=== PATIENT | male | born 1955 | race Caucasian/White ===

== ENCOUNTER 2017-11-10 08:03 | Observation (INO) | payer OTHER ==
[2017-11-10] MEDS ORDERED: ASPIRIN 81 MG TABLET, CHEWABLE PO ONE (08:13)
--- NOTE | 2017-11-10 08:52 | EKG REPORT ---
SEVERITY:- NORMAL ECG - SINUS RHYTHM : Confirmed by: Richmond Griffin 10-Nov-2017 08:51:43
[2017-11-10 09:05] LABS: ABSOLUTE BASOPHILS # (AUTO) 0.1 10^3/uL (0.0-0.2); ABSOLUTE EOSINOPHILS # (AUTO) 0.1 10^3/uL (0.0-0.6); ABSOLUTE LYMPHOCYTES (AUTO) 1.4 10^3/uL (0.5-4.7); ABSOLUTE MONOCYTES (AUTO) 0.4 10^3/uL (0.1-1.4); ABSOLUTE NEUT (AUTO) 4.8 10^3/uL (1.7-8.2); EOSINOPHILS % (AUTO) 1.8 % (0-6); HEMATOCRIT 47.9 % (37.9-51.0); HEMOGLOBIN 16.2 g/dL (13.5-17.0); MEAN CORPUSCULAR HEMOGLOBIN 27.1 pg (27.0-33.4); MEAN CORPUSCULAR HGB CONC 33.8 g/dL (32.0-36.0); MEAN CORPUSCULAR VOLUME 80 fl (80-97); PLATELET COUNT 269 10^3/uL (150-450); RED BLOOD COUNT 5.97 10^6/uL (4.35-5.55); SEGMENTED NEUTROPHILS % (AUTO) 70.2 % (42-78); TOTAL CELLS COUNTED % (AUTO) 100 %; WHITE BLOOD COUNT 6.9 10^3/uL (4.0-10.5)
--- NOTE | 2017-11-10 09:12 | RADIOLOGY REPORT (SQ) ---
EXAM DESCRIPTION: CHEST SINGLE VIEW COMPLETED DATE/TIME: 11/10/2017 9:03 am REASON FOR STUDY: rme cp COMPARISON: None. EXAM PARAMETERS: NUMBER OF VIEWS: One view. TECHNIQUE: Single frontal radiographic view of the chest acquired. RADIATION DOSE: NA LIMITATIONS: None. FINDINGS: LUNGS AND PLEURA: No opacities, masses or pneumothorax. No pleural effusion. MEDIASTINUM AND HILAR STRUCTURES: No masses. Contour normal. HEART AND VASCULAR STRUCTURES: Heart normal in size. Normal vasculature. BONES: No acute findings. HARDWARE: None in the chest. OTHER: No other significant finding. IMPRESSION: NO ACUTE RADIOGRAPHIC FINDING IN THE CHEST. TECHNICAL DOCUMENTATION: JOB ID: [id number] 2012 [employer]- All Rights Reserved
[2017-11-10 09:23] LABS: ALANINE AMINOTRANSFERASE 35 U/L (21-72); ALBUMIN 4.8 g/dL (3.5-5.0); ALKALINE PHOSPHATASE 57 U/L (38-126); ANION GAP 12 (5-19); ASPARTATE AMINO TRANSFERASE 22 U/L (17-59); BILIRUBIN,DIRECT 0.2 mg/dL (0.0-0.4); BILIRUBIN,TOTAL 0.7 mg/dL (0.2-1.3); BLOOD UREA NITROGEN 23 mg/dL (7-20); CALCIUM 10.4 mg/dL (8.4-10.2); CARBON DIOXIDE 27 mmol/L (22-30); CHLORIDE 100 mmol/L (98-107); CREATINE KINASE 47 U/L (55-170); GLUCOSE 112 mg/dL (75-110); POTASSIUM 4.5 mmol/L (3.6-5.0); SODIUM 138.9 mmol/L (137-145); TOTAL PROTEIN 7.5 g/dL (6.3-8.2)
[2017-11-10 09:33] LABS: CREATINE KINASE MB 2.35 ng/mL (<4.55)
[2017-11-10 09:34] LABS: TROPONIN I < 0.012 ng/mL
--- NOTE | 2017-11-10 09:41 | ER Document Report ---
ED General - General Chief Complaint: Chest Pain Stated Complaint: DIZZY Time Seen by Provider: 11/10/17 09:40 Mode of Arrival: Ambulatory Information source: Patient Notes: 62-year-old male history of hypertension hyperlipidemia presents with complaints of chest pressure sensation tightness lasting 1-2 minutes at a time intermittently over the past few weeks. Patient has not been evaluated for this. He does note that his blood pressure goes up and he feels ill. Pt notes iwth the chest pain he does get flushed . no recent stress. TRAVEL OUTSIDE OF THE [place] IN LAST 30 DAYS: No - HPI Onset: Just prior to arrival Onset/Duration: Sudden Quality of pain: Pressure Severity: Mild Pain Level: 1 Associated symptoms: Chest pain Exacerbated by: Denies Relieved by: Denies Similar symptoms previously: No Recently seen / treated by doctor: No - Related Data Allergies/Adverse Reactions: No Known Allergies Allergy (Unverified 11/10/17 08:06) Past Medical History - Social History Smoking Status: Current Every Day Smoker Cigarette use (# per day): No Chew tobacco use (# tins/day): No Smoking Education Provided: No Family History: Reviewed & Not Pertinent Review of Systems - Review of Systems Notes: REVIEW OF SYSTEMS: CONSTITUTIONAL : Denies fever, chills, or sweats. Denies recent illness. EENT: Denies eye, ear, throat, or mouth pain or symptoms. Denies nasal or sinus congestion or discharge. Denies throat, tongue, or mouth swelling or difficulty swallowing. CARDIOVASCULAR: admits to chest pain RESPIRATORY: Denies cough, cold, or chest congestion. Denies shortness of breath, difficulty breathing, or wheezing. GASTROINTESTINAL: Denies abdominal pain or distention. Denies nausea, vomiting , or diarrhea. Denies blood in vomitus, stools, or per rectum. Denies black, tarry stools. Denies constipation. GENITOURINARY: Denies difficulty urinating, painful urination, burning, frequency, blood in urine, or discharge. MUSCULOSKELETAL: Denies back or neck pain or stiffness. Denies joint pain or swelling. SKIN: Denies rash, lesions or sores. HEMATOLOGIC : Denies easy bruising or bleeding. LYMPHATIC: Denies swollen, enlarged glands. NEUROLOGICAL: Denies confusion or altered mental status. Denies passing out or loss of consciousness. Denies dizziness or lightheadedness. Denies headache. Denies weakness or paralysis or loss of use of either side. Denies problems with gait or speech. Denies sensory loss, numbness, or tingling. Denies seizures. PSYCHIATRIC: Denies anxiety or stress. Denies depression, suicidal ideation, or homicidal ideation. ALL OTHER SYSTEMS REVIEWED AND NEGATIVE. Dictation was performed using [employer] voice recognition software PHYSICAL EXAMINATION: GENERAL: Well-appearing, well-nourished and in no acute distress. HEAD: Atraumatic, normocephalic. EYES: Pupils equal round and reactive to light, extraocular movements intact, sclera anicteric, conjunctiva are normal. ENT: Nares patent, oropharynx clear without exudates. Moist mucous membranes. NECK: Normal range of motion, supple without lymphadenopathy LUNGS: Breath sounds clear to auscultation bilaterally and equal. No wheezes rales or rhonchi. HEART: Regular rate and rhythm without murmurs ABDOMEN: Soft, nontender, nondistended abdomen. No guarding, no rebound. No masses appreciated. Musculoskeletal: Normal range of motion, no pitting or edema. No cyanosis. NEUROLOGICAL: Cranial nerves grossly intact. Normal speech, normal gait. Normal sensory, motor exams PSYCH: Normal mood, normal affect. SKIN: Warm, Dry, normal turgor, no rashes or lesions noted. Physical Exam - Vital signs Vitals: Temp Pulse Resp BP Pulse Ox 98.4 F 75 16 140/99 H 94 11/10/17 08:23 11/10/17 08:23 11/10/17 08:23 11/10/17 08:23 11/10/17 08:23 Course - Re-evaluation Re-evalutation: 11/10/17 10:44 Patient overall looks well, given his complaints of dizziness chest tightness high blood pressure I will observe in the hospital over night, I believe he has anginal equivalent. Lab work imaging at this time are negative - Vital Signs Vital signs: Temp Pulse Resp BP Pulse Ox 98.4 F 75 16 140/99 H 94 11/10/17 08:23 11/10/17 08:23 11/10/17 08:23 11/10/17 08:23 11/10/17 08:23 - Laboratory Result Diagrams: 11/10/17 08:45 11/10/17 08:45 Laboratory results interpreted by me: 11/10/17 11/10/17 08:45 08:45 RBC 5.97 H BUN 23 H Glucose 112 H Calcium 10.4 H Creatine Kinase 47 L - Diagnostic Test Radiology reviewed: Image reviewed, Reports reviewed - EKG Interpretation by Me EKG shows normal: Sinus rhythm, [place], Intervals, QRS Complexes Discharge - Discharge Clinical Impression: Chest pain Qualifiers: Chest pain type: unspecified Qualified Code(s): R07.9 - Chest pain, unspecified Condition: Stable Disposition: ADMITTED OBSERVATION Admitting Provider: Hospitalist Unit Admitted: Telemetry
[2017-11-10] MEDS ORDERED: ONDANSETRON HCL INJ/PF 4 MG/2 ML SDV IV PRN (10:51)
[2017-11-10] MEDS ORDERED: DOCUSATE SODIUM 100 MG CAPSULE PO PRN (10:51)
[2017-11-10] MEDS ORDERED: NITROGLYCERIN 0.4 MG/TAB 25 TAB/BOTTLE SL PRN (10:51)
[2017-11-10] MEDS ORDERED: MAG HYDROX/AL HYDROX/SIMETH SUSP 30 ML UDCUP PO PRN (10:51)
[2017-11-10 12:08] LABS: CREATINE KINASE MB 2.09 ng/mL (<4.55)
[2017-11-10 12:09] LABS: TROPONIN I < 0.012 ng/mL
[2017-11-10 12:33] LABS: INTERNATIONAL RATION (INR) 0.86; PARTIAL THROMBOPLASTIN TIME 27.8 SEC (23.5-35.8); PROTHROMBIN TIME 12.4 SEC (11.4-15.4)
[2017-11-10] MEDS ORDERED: HYDRALAZINE HCL INJ/PF 20 MG/1 ML SDV IV PRN (12:49)
--- NOTE | 2017-11-10 12:51 | PDOC H&P ---
History of Present Illness Admission Date/PCP: 11/10/17 10:51 KUMAR CALLE MD Patient complains of: Chest pressure History of Present Illness: NICKY WOOD is a 62 year old male with a past medical history significant for hypertension and hyperlipidemia who presented to the emergency department with a complaint of intermittent chest pressure for the last 2-3 weeks that is occurring more frequently. He reports that he has noted a flushed and dizzy sensation that is associated with the chest pressure. He states that the chest pressure woke him from sleep last night and occurred intermittently throughout the night with each episode lasting 1-2 minutes. The pressure last night also radiated to between his shoulder blades which was a new development and prompted him to seek medical evaluation. At present, he is pain free. Evaluation in the emergency department was essentially unremarkable other than hypertension noted to be 163/95. He was referred to the hospitalist service for observational admission and chest pain workup. Past Medical History Cardiac Medical History: Reports: Hyperlipidema, Hypertension Pulmonary Medical History: Reports: None EENT Medical History: Reports: None Neurological Medical History: Reports: None Endocrine Medical History: Reports: None Renal/ Medical History: Reports: None Malignancy Medical History: Reports: None GI Medical History: Reports: None Musculoskeltal Medical History: Reports: None Skin Medical History: Reports: None Psychiatric Medical History: Reports: None Traumatic Medical History: Reports: None Hematology: Reports: None Infectious Medical History: Reports: None Past Surgical History Past Surgical History: Reports: Orthopedic Surgery - Back, Other - Sinus Social History Information Source: Patient Lives with: Family Smoking Status: Former Smoker Number of Years Smokin Last Time Smoked: 1970 Frequency of Alcohol Use: None Drugs: None Hx Prescription Drug Abuse: No - Advance Directive Resuscitation Status: Full Code Family History Family History: CAD, CVA, Malignancy - Laryngeal Parental Family History Reviewed: Yes Children Family History Reviewed: Yes Sibling(s) Family History Reviewed.: Yes Medication/Allergy Allergies/Adverse Reactions: No Known Allergies Allergy (Unverified 11/10/17 08:06) Review of Systems Constitutional: ABSENT: chills, fever(s), headache(s), weight gain, weight loss Eyes: ABSENT: visual disturbances Ears: ABSENT: hearing changes Cardiovascular: PRESENT: as per HPI, chest pain. ABSENT: dyspnea on exertion, edema, orthropnea, palpitations Respiratory: ABSENT: cough, hemoptysis Gastrointestinal: ABSENT: abdominal pain, constipation, diarrhea, hematemesis, hematochezia, nausea, vomiting Genitourinary: ABSENT: dysuria, hematuria Musculoskeletal: ABSENT: joint swelling Integumentary: ABSENT: rash, wounds Neurological: PRESENT: dizziness - w/ Chest pain. ABSENT: abnormal gait, abnormal speech, confusion, focal weakness, syncope Psychiatric: ABSENT: anxiety, depression, homidical ideation, suicidal ideation Endocrine: ABSENT: cold intolerance, heat intolerance, polydipsia, polyuria Hematologic/Lymphatic: ABSENT: easy bleeding, easy bruising Physical Exam Vital Signs: Temp Pulse Resp BP Pulse Ox 98.4 F 75 11 L 163/95 H 98 11/10/17 08:23 11/10/17 08:23 11/10/17 11:01 11/10/17 11:00 11/10/17 11:01 General appearance: PRESENT: no acute distress, well-developed, well-nourished Head exam: PRESENT: atraumatic, normocephalic Eye exam: PRESENT: conjunctiva pink, EOMI, PERRLA. ABSENT: scleral icterus Ear exam: PRESENT: normal external ear exam Mouth exam: PRESENT: moist, tongue midline Neck exam: ABSENT: carotid bruit, JVD, lymphadenopathy, thyromegaly Respiratory exam: PRESENT: clear to auscultation rosie, symmetrical, unlabored. ABSENT: rales, rhonchi, wheezes Cardiovascular exam: PRESENT: RRR, +S1, +S2. ABSENT: diastolic murmur, rubs, systolic murmur Pulses: PRESENT: normal dorsalis pedis pul Vascular exam: PRESENT: normal capillary refill GI/Abdominal exam: PRESENT: normal bowel sounds, soft. ABSENT: distended, guarding, mass, organolmegaly, rebound, tenderness Rectal exam: PRESENT: deferred Extremities exam: PRESENT: full ROM. ABSENT: calf tenderness, clubbing, pedal edema Neurological exam: PRESENT: alert, awake, oriented to person, oriented to place , oriented to time, oriented to situation, CN II-XII grossly intact. ABSENT: motor sensory deficit Psychiatric exam: PRESENT: appropriate affect, normal mood. ABSENT: homicidal ideation, suicidal ideation Skin exam: PRESENT: dry, intact, warm. ABSENT: cyanosis, rash Results Laboratory Results: 11/10/17 11:19 CK-MB (CK-2) 2.09 Troponin I < 0.012 Impressions: Chest X-Ray 11/10/17 08:14 IMPRESSION: NO ACUTE RADIOGRAPHIC FINDING IN THE CHEST. Assessment & Plan - Diagnosis (1) Chest pain Qualifiers: Chest pain type: unspecified Qualified Code(s): R07.9 - Chest pain, unspecified Is this a current diagnosis for this admission?: Yes Plan: The patient is admitted with intermittent chest pain that has gradually worsened in frequency and severity over the last 2-3 weeks. Heart score of 4. He is admitted as observation on continuous cardiac telemetry. Initial troponins are reassuring. Will trend. Hgb A1C was obtained to further satisfy risk; 6.0% Will obtain fasting lipid panel in the morning. He is placed on ASA and atorvastatin. Will obtain Cardiolite stress test. (2) Hypertension Is this a current diagnosis for this admission?: Yes Plan: Will resume home medications once reconciled. IV Hydralazine as needed for blood pressure. Cardiac diet. (3) Hyperlipidemia Is this a current diagnosis for this admission?: Yes Plan: Will obtain lipid panel. The patient is placed on atorvastatin; will adjust as needed once home medications are reconciled. - Time Time Spent: 50 to 70 Minutes Medications reviewed and adjusted accordingly: Yes Anticipated discharge: Home Within: within 24 hours
[2017-11-10 13:06] LABS: HEMATOCRIT 47.4 % (37.9-51.0); HEMOGLOBIN 15.8 g/dL (13.5-17.0); MEAN CORPUSCULAR HEMOGLOBIN 26.9 pg (27.0-33.4); MEAN CORPUSCULAR HGB CONC 33.3 g/dL (32.0-36.0); MEAN CORPUSCULAR VOLUME 81 fl (80-97); PLATELET COUNT 251 10^3/uL (150-450); RED BLOOD COUNT 5.88 10^6/uL (4.35-5.55); RED CELL DISTRIBUTION WIDTH 13.8 % (11.5-14.0); WHITE BLOOD COUNT 9.2 10^3/uL (4.0-10.5)
[2017-11-10] MEDS ORDERED: ATORVASTATIN CALCIUM 40 MG TABLET PO ONE (13:15)
[2017-11-10 18:13] LABS: CREATINE KINASE MB 2.41 ng/mL (<4.55)
[2017-11-10 18:16] LABS: TROPONIN I < 0.012 ng/mL
[2017-11-10] MEDS ORDERED: ATORVASTATIN CALCIUM 40 MG TABLET PO SCH (22:00)
[2017-11-10] MEDS: KETOROLAC TROMETHAMINE INJ/PF 30 MG/1 ML SDV IV PRN (23:20)
[2017-11-10] MEDS: FAMOTIDINE 20 MG TABLET PO SCH (23:21)
[2017-11-10 23:34] LABS: CREATINE KINASE MB 2.59 ng/mL (<4.55)
[2017-11-10 23:38] LABS: TROPONIN I < 0.012 ng/mL
[2017-11-11] MEDS: KETOROLAC TROMETHAMINE INJ/PF 30 MG/1 ML SDV IV PRN (05:28)
[2017-11-11 07:16] LABS: HEMATOCRIT 46.5 % (37.9-51.0); HEMOGLOBIN 15.4 g/dL (13.5-17.0); MEAN CORPUSCULAR HGB CONC 33.2 g/dL (32.0-36.0); MEAN CORPUSCULAR VOLUME 81 fl (80-97); PLATELET COUNT 252 10^3/uL (150-450); RED BLOOD COUNT 5.73 10^6/uL (4.35-5.55); RED CELL DISTRIBUTION WIDTH 14.2 % (11.5-14.0); WHITE BLOOD COUNT 7.7 10^3/uL (4.0-10.5)
[2017-11-11 07:40] LABS: ANION GAP 7 (5-19); BLOOD UREA NITROGEN 25 mg/dL (7-20); CARBON DIOXIDE 30 mmol/L (22-30); CHLORIDE 101 mmol/L (98-107); CHOLESTEROL 315.16 mg/dL (0-200); GLUCOSE 96 mg/dL (75-110); POTASSIUM 4.6 mmol/L (3.6-5.0); SODIUM 137.7 mmol/L (137-145); TRIGLYCERIDES 166 mg/dL (<150)
[2017-11-11 07:50] LABS: DIRECT LDL 209 mg/dL (<100)
[2017-11-11 07:53] LABS: VLDL CHOLESTEROL 33.2 mg/dL (10-31)
[2017-11-11] MEDS ORDERED: FLUTICASONE NASAL SPRAY 50 MCG/SPRY 120 SPRAY/16 GM NASL ONE (09:45)
[2017-11-11] MEDS ORDERED: ASPIRIN 81 MG TABLET, ENT COATED PO SCH (10:00)
[2017-11-11] MEDS ORDERED: ENOXAPARIN SODIUM INJ 40 MG/0.4 ML DISP.SYRIN SUBCUT SCH (10:00)
[2017-11-11] MEDS: FAMOTIDINE 20 MG TABLET PO SCH (11:19)
--- NOTE | 2017-11-11 13:27 | DRAGON STRESS TEST REPORT ---
INTRAVENOUS LEXISCAN CARDIOLITE STRESS TEST USING SINGLE PHOTON EMMISION COMPUTERIZED TOMOGRAPHIC. DATE OF PROCEDURE: November 11, 2017, INDICATION : Chest pain CARDIAC RISK FACTORS: Hypertension, dyslipidemia RESTING EKG: Sinus rhythm, no baseline ST-T wave changes noted STRESS EKG: No significant changes noted with LexiScan bolus REASON FOR TERMINATION: Protocol. PROCEDURE REPORT: Baseline heart rate 58 beats per minute with blood pressure of 171/104. Patient had no significant complaints. Heart rate at 2 minutes post bolus 95 with a blood pressure of 178/96. 3 minutes post bolus heart rate 75 with blood pressure of 176/111. No significant EKG changes were noted. Patient had no significant complaints during the procedure or postprocedure. Patient injected with Aminophyllin 75 mg at 3 minutes or later after Lexiscan bolus. CONCLUSIONS: Normal EKG and hemodynamic response to IV LexiScan. NUCLEAR DATA: At rest the patient was given 11.92 millicuries of technetium 99 sestamibi injected intravenously. As per protocol rest gated SPECT images were obtained. On day of stress test, the patient was given intravenous LexiScan at a dose of 0.4 mg in 5 mL intravenously, followed by flush with normal saline. Subsequently the stress dose of 36.8 millicuries of technetium 99 sestamibi was injected intravenously. As per protocol stress gated images were obtained. NUCLEAR INTERPRETATION: Both raw and processed data were used for interpretation. Visual, qualitative, computer-generated quantitative data was used. There was good myocardial uptake of technetium compound. Motion artifact and soft tissue attenuations were noted. Increased visceral uptake was noted. No definitive areas of transient perfusion defect noted, No definitive areas of fixed perfusion defect or scars noted. EKG gated imaging showed LV EF at 49 %, rest and stress gated EF similar visually. T. I D. ratio was 1.09. Lung heart ratio noted to be within normal limits 0.24. No significant extracardiac and abnormal radiotracer activities were noted. RV free wall uptake was noted to be WNL. IMPRESSION: Also refer to comments under nuclear interpretation. Also test results needs to be interpreted in the context of pretest probability. 1. No definitive areas of transient perfusion defect noted. 2. There is no definitive scintigraphic evidence of myocardial infarction/scar. 3. EKG gated imaging shows left ventricular ejection fraction of approx. 49 %. 4. Clinical correlation requested as occasionally single vessel disease or balanced ischemia could be missed. In approximately 10% of the cases Lexiscan may not cause adequate vasodilatory stress. MTDD
[2017-11-11] MEDS ORDERED: BUTALB/ACETAMINOPHEN/CAFFEINE 1 TAB EACH PO ONE (15:00)
[2017-11-11 16:16] VITALS: BP 151/83
--- NOTE | 2017-11-11 17:16 | PDOC DISCHARGE SUMMARY ---
General - Admit/Disc Date/PCP Admission Date/Primary Care Provider: 11/10/17 10:51 KUMAR CALLE MD Discharge Date: 11/11/17 - Discharge Diagnosis (3) Chest pain Is this a current diagnosis for this admission?: Yes (4) Hyperlipidemia Is this a current diagnosis for this admission?: Yes (5) Hypertension Is this a current diagnosis for this admission?: Yes - Additional Information Resuscitation Status: Full Code Discharge Diet: Regular Discharge Activity: Walk Frequently Prescriptions: Amox Tr/Potassium Clavulanate [Augmentin 875-125 mg Tablet] 1 tab PO BID #20 tablet Atorvastatin Calcium [Lipitor 40 mg Tablet] 40 mg PO QHS 30 Days #30 tablet Nitroglycerin [Nitrostat 0.4 mg (1/150 Gr) Tabs 25/Bottle] 1 tab SL Q5MP PRN # 12 bottle PRN Reason: Venlafaxine HCl ER [Effexor Xr 37.5 mg Cap.sr] 37.5 mg PO DAILY #30 cap.sr.24h Home Medications: 5-Hydroxytryptophan (5-Htp) [5-HTP 100 mg Capsule] 100 mg PO DAILY 11/10/17 Cholecalciferol (Vitamin D3) [Vitamin D3 5000 unit Capsule] 10,000 unit PO DAILY 11/10/17 Eletriptan HBr [Relpax] 40 mg PO .X1 PRN MDD 2 DOSES 11/10/17 Garlic [Garlic Oil] 1,000 mg PO DAILY 11/10/17 Ibuprofen [Motrin 800 mg Tablet] 800 mg PO Q8HP PRN 11/10/17 Ipratropium [place] [Atrovent 0.06% Nasal [place]] 2 spray NASL QIDP PRN 11/10/17 Lisinopril [Prinivil 10 mg Tablet] 10 mg PO DAILY 11/10/17 Meclizine HCl [Antivert 12.5 mg Tablet] 12.5 mg PO DAILYP PRN 11/10/17 Multivit-Min/FA/Lycopen/Lutein [Centrum Silver Men Tablet] 1 tab PO DAILY [place]-3 Fatty Acids/Fish Oil [Fish Oil 1,000 mg Capsule] 1 cap PO DAILY Amox Tr/Potassium Clavulanate [Augmentin 875-125 mg Tablet] 1 tab PO BID #20 tablet 11/11/17 Aspirin [Ecotrin 81 mg EC Tablet] 81 mg PO DAILY #0 tabec 11/11/17 Atorvastatin Calcium [Lipitor 40 mg Tablet] 40 mg PO QHS 30 Days #30 tablet Nitroglycerin [Nitrostat 0.4 mg (1/150 Gr) Tabs 25/Bottle] 1 tab SL Q5MP PRN # 12 bottle 11/11/17 Venlafaxine HCl ER [Effexor Xr 37.5 mg Cap.sr] 37.5 mg PO DAILY #30 cap.sr.24h 11/11/17 History of Present Illness History of Present Illness: NICKY WOOD is a 62 year old male with a past medical history significant for hypertension and hyperlipidemia who presented to the emergency department with a complaint of intermittent chest pressure for the last 2-3 weeks that is occurring more frequently. He reports that he has noted a flushed and dizzy sensation that is associated with the chest pressure. He states that the chest pressure woke him from sleep last night and occurred intermittently throughout the night with each episode lasting 1-2 minutes. The pressure last night also radiated to between his shoulder blades which was a new development and prompted him to seek medical evaluation. At present, he is pain free. Evaluation in the emergency department was essentially unremarkable other than hypertension noted to be 163/95. He was referred to the hospitalist service for observational admission and chest pain workup. This is the original H&P dictated by Dr. Blanco. Hospital Course Hospital Course: Patient was admitted for chest pain. Due to his risk factors patient was set up for stress test. Prior to the stress test patient was placed on aspirin and statin. No beta-carl was given due to patient's borderline bradycardia. Patient did have a lipid panel which was consistent with hyperlipidemia. Patient hemoglobin A1c was 6. Patient stress test was normal. Patient no longer has chest pain. But he is complaining of a headache. Patient states that he has been stressed and is having anxiety. Patient used to take Effexor in the past however when the dose was increased and made him feel poorly and he stopped taking the medication. Patient is requesting to be placed back on that medication. Patient is also complaining of a sinus infection. Patient does have symptoms consistent with a sinus infection. Patient started on Augmentin and Flonase. Patient is being discharged home to follow his PCP. Will also give him a referral to cardiology for further evaluation if necessary. Physical Exam Vital Signs: Temp Pulse Resp BP Pulse Ox 97.9 F 62 16 151/83 H 100 11/11/17 16:15 11/11/17 16:15 11/11/17 16:15 11/11/17 16:15 11/11/17 16:15 Intake & Output 11/10/17 11/11/17 11/12/17 06:59 06:59 06:59 Intake Total 3 Balance 3 Weight 78.7 kg General appearance: PRESENT: no acute distress, well-developed, well-nourished Head exam: PRESENT: atraumatic, normocephalic Eye exam: PRESENT: EOMI, other - Glasses. ABSENT: scleral icterus Ear exam: PRESENT: normal external ear exam Mouth exam: PRESENT: moist, tongue midline Teeth exam: PRESENT: poor dentation Neck exam: ABSENT: carotid bruit, JVD, lymphadenopathy, thyromegaly Respiratory exam: PRESENT: clear to auscultation rosie. ABSENT: rales, rhonchi, wheezes Cardiovascular exam: PRESENT: RRR. ABSENT: diastolic murmur, rubs, systolic murmur Pulses: PRESENT: normal dorsalis pedis pul Vascular exam: PRESENT: normal capillary refill GI/Abdominal exam: PRESENT: normal bowel sounds, soft. ABSENT: distended, guarding, mass, organolmegaly, rebound, tenderness Rectal exam: PRESENT: deferred Extremities exam: PRESENT: full ROM. ABSENT: calf tenderness, clubbing, pedal edema Neurological exam: PRESENT: alert, awake, oriented to person, oriented to place , oriented to time, oriented to situation, CN II-XII grossly intact. ABSENT: motor sensory deficit Psychiatric exam: PRESENT: appropriate affect, normal mood. ABSENT: homicidal ideation, suicidal ideation Skin exam: PRESENT: dry, intact, warm. ABSENT: cyanosis, rash Results Laboratory Results: 11/11/17 06:15 11/11/17 06:15 11/11/17 11/11/17 06:15 06:15 WBC 7.7 RBC 5.73 H Hgb 15.4 Hct 46.5 MCV 81 MCH 27.0 MCHC 33.2 RDW 14.2 H Plt Count 252 Sodium 137.7 Potassium 4.6 Chloride 101 Carbon Dioxide 30 Anion Gap 7 BUN 25 H Creatinine 0.88 Est GFR ( Amer) > 60 Est GFR (Non-Af Amer) > 60 Glucose 96 Calcium 10.0 Triglycerides 166 H Cholesterol 315.16 H LDL Cholesterol Direct 209 H VLDL Cholesterol 33.2 H HDL Cholesterol 69 11/10/17 11/10/17 11/10/17 11:19 17:04 22:56 CK-MB (CK-2) 2.09 2.41 2.59 Troponin I < 0.012 < 0.012 < 0.012 Impressions: Chest X-Ray 11/10/17 08:14 IMPRESSION: NO ACUTE RADIOGRAPHIC FINDING IN THE CHEST. Qualifiers PATEINT BEING DISCHARGED WITH ANY OF THE FOLLOWING DIAGNOSIS?: No Plan Time Spent: Greater than 30 Minutes - Patient is being discharged home on aspirin and statin. Patient advised that his cholesterol is elevated and he does require therapy at this time as he does have risk factors for coronary artery disease.
[2017-11-11] MEDS ORDERED: REGADENOSON INJ 0.4 MG/5 ML DISP.SYRIN IV ONE (17:24)
[2017-11-11] MEDS ORDERED: AMINOPHYLLINE INJ/PF 250 MG/10 ML SDV IV ONE (17:24)
[2017-11-11] MEDS ORDERED: PSEUDOEPHEDRINE HCL 30 MG TABLET PO ONE (18:00)
[2017-11-11] MEDS ORDERED: LISINOPRIL 10 MG TABLET PO ONE (18:00)
[2017-11-11] MEDS ORDERED: AMOXICILLIN TR/POT CLAVULANATE 500-125 MG TAB PO ONE (18:00)
== END 2017-11-11 18:35 | disposition home or self-care (01) ==
LOC: ER 08:03 → EH 10:51 → 5 11-11 00:59
PROVIDERS: ADMIT Internal Medicine; ATTEND Internal Medicine
DX: R07.89 Other chest pain (principal); E78.5 Hyperlipidemia, unspecified; I10 Essential (primary) hypertension; R00.1 Bradycardia, unspecified; F41.9 Anxiety disorder, unspecified; R51 Headache; R42 Dizziness and giddiness; Z79.899 Other long term (current) drug therapy; Z79.82 Long term (current) use of aspirin; J32.9 Chronic sinusitis, unspecified; Z87.891 Personal history of nicotine dependence; Z98.890 Other specified postprocedural states; Z82.49 Family history of ischemic heart disease and other diseases of the circulatory system
CPT/HCPCS: 93005; 99285; 96374; 36415 ×2; 82553; 82550; 82565; 85025; 85027 ×2; 85610; 85730; 80048; 80053; 84484; 83036; 80061; 93017; 71045; 78452; 93010; A9500; J2785; J3490 ×3; J1885 ×2; J1650; J0280; Q9969

== ENCOUNTER 2019-02-16 11:50 | Observation (INO) | payer OTHER ==
[2019-02-16] MEDS ORDERED: ASPIRIN 81 MG TABLET, CHEWABLE PO ONE (12:02)
--- NOTE | 2019-02-16 12:04 | ER Document Report ---
ED Medical Screen (RME) - General Chief Complaint: Chest Pain Stated Complaint: BLOOD PRESSURE ISSUE Time Seen by Provider: 02/16/19 12:02 Primary Care Provider: KUMAR CALLE MD [Primary Care Provider] - Follow up as needed Mode of Arrival: Ambulatory Information source: Patient Notes: Patient presents complaining of anterior chest tightness that started around 6:00 this morning. Patient complains of elevated blood pressure despite with his antihypertensive medications. Patient also complains of feeling lightheaded. Patient complains of tingling around the mouth as well. hx: Hypertension, dyslipidemia I have greeted and performed a rapid initial assessment of this patient. A comprehensive ED assessment and evaluation of the patient, analysis of test results and completion of the medical decision making process will be conducted by additional ED providers. TRAVEL OUTSIDE OF THE [place] IN LAST 30 DAYS: No - Related Data Allergies/Adverse Reactions: No Known Allergies Allergy (Unverified 11/10/17 08:06) Past Medical History - Social History Frequency of alcohol use: None Drug Abuse: None - Past Medical History Cardiac Medical History: Reports: Hx Hypercholesterolemia, Hx Hypertension Denies: Hx Congestive Heart Failure, Hx Heart Attack Pulmonary Medical History: Denies: Hx Asthma, Hx Bronchitis, Hx COPD, Hx Pneumonia, Hx Tuberculosis Neurological Medical History: Denies: Hx Seizures Renal/ Medical History: Denies: Hx Benign Prostatic Hyperplasia, Hx End Stage Renal Disease, Hx Kidney Stones, Hx Peritoneal Dialysis GI Medical History: Reports: Hx Gastroesophageal Reflux Disease. Denies: Hx Cirrhosis, Hx Ulcer Musculoskeltal Medical History: Reports Hx Arthritis - RA, Denies Hx Multiple Sclerosis Psychiatric Medical History: Reports: Hx Depression Denies: Hx Bipolar Disorder, Hx Schizophrenia Past Surgical History: Reports: Hx Orthopedic Surgery - Back, Other - Sinus - Immunizations Hx Diphtheria, Pertussis, Tetanus Vaccination: Yes History of Influenza Vaccine for 07/2017 - 12/2017 Season: Yes Influenza Administration Date for 07/2017 - 12/2017 Season: 08/20/17 Physical Exam - Vital signs Vitals: Temp Pulse Resp BP Pulse Ox 98.0 F 54 L 16 224/96 H 99 02/16/19 11:58 02/16/19 11:58 02/16/19 11:58 02/16/19 11:58 02/16/19 11:58 - Cardiovascular Rhythm: Regular Heart sounds: S1 appreciated, S2 appreciated Course - Vital Signs Vital signs: Temp Pulse Resp BP Pulse Ox 98.0 F 54 L 16 224/96 H 99 02/16/19 11:58 02/16/19 11:58 02/16/19 11:58 02/16/19 11:58 02/16/19 11:58 Doctor's Discharge - Discharge Referrals: KUMAR CALLE MD [Primary Care Provider] - Follow up as needed
--- NOTE | 2019-02-16 12:32 | RADIOLOGY REPORT (SQ) ---
EXAM DESCRIPTION: CHEST 2 VIEWS COMPLETED DATE/TIME: 02/16/2019 12:15 pm REASON FOR STUDY: cp COMPARISON: None. TECHNIQUE: Frontal and lateral radiographic views of the chest acquired. NUMBER OF VIEWS: Two view. LIMITATIONS: None. FINDINGS: LUNGS AND PLEURA: No opacities, masses or pneumothorax. No pleural effusion. MEDIASTINUM AND HILAR STRUCTURES: No masses or contour abnormalities. HEART AND VASCULAR STRUCTURES: Heart normal size. No evidence for failure. BONES: No acute findings. HARDWARE: None in the chest. OTHER: No other significant finding. IMPRESSION: NO SIGNIFICANT RADIOGRAPHIC FINDING IN THE CHEST. TECHNICAL DOCUMENTATION: JOB ID: [id number] [employer]- All Rights Reserved Reading location - IP/workstation name: [email or web address]
[2019-02-16 13:02] LABS: ABSOLUTE BASOPHILS # (AUTO) 0.1 10^3/uL (0.0-0.2); ABSOLUTE EOSINOPHILS # (AUTO) 0.1 10^3/uL (0.0-0.6); ABSOLUTE LYMPHOCYTES (AUTO) 1.7 10^3/uL (0.5-4.7); ABSOLUTE MONOCYTES (AUTO) 0.5 10^3/uL (0.1-1.4); ABSOLUTE NEUT (AUTO) 4.1 10^3/uL (1.7-8.2); BASOPHILS % (AUTO) 1.2 % (0-2); EOSINOPHILS % (AUTO) 2.2 % (0-6); MEAN CORPUSCULAR HEMOGLOBIN 27.2 pg (27.0-33.4); MEAN CORPUSCULAR HGB CONC 33.4 g/dL (32.0-36.0); MEAN CORPUSCULAR VOLUME 81 fl (80-97); MONOCYTES % (AUTO) 7.8 % (3-13); PLATELET COUNT 239 10^3/uL (150-450); RED BLOOD COUNT 5.52 10^6/uL (4.35-5.55); RED CELL DISTRIBUTION WIDTH 15.2 % (11.5-14.0); SEGMENTED NEUTROPHILS % (AUTO) 62.8 % (42-78); TOTAL CELLS COUNTED % (AUTO) 100 %; WHITE BLOOD COUNT 6.6 10^3/uL (4.0-10.5)
[2019-02-16] MEDS ORDERED: HYDRALAZINE HCL INJ/PF 20 MG/1 ML SDV IV ONE (13:11)
[2019-02-16] MEDS ORDERED: NORMAL SALINE 500 ML IV ONE (13:11)
[2019-02-16 13:22] LABS: ALANINE AMINOTRANSFERASE 46 U/L (21-72); ALBUMIN 4.4 g/dL (3.5-5.0); ALKALINE PHOSPHATASE 51 U/L (38-126); ANION GAP 6 (5-19); ASPARTATE AMINO TRANSFERASE 26 U/L (17-59); BILIRUBIN,DIRECT 0.2 mg/dL (0.0-0.4); BILIRUBIN,TOTAL 0.4 mg/dL (0.2-1.3); BLOOD UREA NITROGEN 20 mg/dL (7-20); CALCIUM 9.7 mg/dL (8.4-10.2); CARBON DIOXIDE 33 mmol/L (22-30); CHLORIDE 102 mmol/L (98-107); CREATINE KINASE 89 U/L (55-170); GLUCOSE 99 mg/dL (75-110); LIPASE 105.5 U/L (23-300); POTASSIUM 4.2 mmol/L (3.6-5.0); SODIUM 140.5 mmol/L (137-145); TOTAL PROTEIN 7.1 g/dL (6.3-8.2)
[2019-02-16 13:32] LABS: CREATINE KINASE MB 4.59 ng/mL (<4.55); TROPONIN I < 0.012 ng/mL
--- NOTE | 2019-02-16 13:40 | ER Document Report ---
Entered by NORBERTO ESPOSITO SCRIBE 02/16/19 1318 Acting as scribe for:LIZ BAINS MD ED General - General Chief Complaint: Chest Pain Stated Complaint: BLOOD PRESSURE ISSUE Time Seen by Provider: 02/16/19 12:02 Mode of Arrival: Ambulatory Information source: Patient Notes: Patient is a 63 year old male with HTN presents to the emergency department complaining of chest pain, hypertension and light headedness onset this morning. Patient states he woke up this morning and immediately felt light headed. He states after getting up and walking around, at approximately 0600, he began to have chest pain. He states he proceeded to go to work and the chest pain pers isted so he checked his blood pressure and found it to be elevated. He states his light headedness has improved. Of note, patient presented to the emergency department last year complaining of similar symptoms and had a negative nuclear medical stress test. TRAVEL OUTSIDE OF THE [place] IN LAST 30 DAYS: No - Related Data Allergies/Adverse Reactions: No Known Allergies Allergy (Unverified 11/10/17 08:06) Past Medical History - General Information source: Patient - Social History Smoking Status: Former Smoker - as a teenager Cigarette use (# per day): No Chew tobacco use (# tins/day): No Smoking Education Provided: No Frequency of alcohol use: None Drug Abuse: None Family History: CAD, CVA, Malignancy - Laryngeal Patient has suicidal ideation: No Patient has homicidal ideation: No - Past Medical History Cardiac Medical History: Reports: Hx Hypercholesterolemia, Hx Hypertension GI Medical History: Reports: Hx Gastroesophageal Reflux Disease Musculoskeletal Medical History: Reports Hx Arthritis - RA Psychiatric Medical History: Reports: Hx Depression Past Surgical History: Reports: Hx Orthopedic Surgery - Back, Other - Sinus - Immunizations Hx Diphtheria, Pertussis, Tetanus Vaccination: Yes Hx Pneumococcal Vaccination: 08/20/16 Review of Systems - Review of Systems Constitutional: See HPI EENT: No symptoms reported Cardiovascular: See HPI, Chest pain, Lightheaded Respiratory: No symptoms reported Gastrointestinal: No symptoms reported Genitourinary: No symptoms reported Male Genitourinary: No symptoms reported Musculoskeletal: No symptoms reported Skin: No symptoms reported Hematologic/Lymphatic: No symptoms reported Neurological/Psychological: No symptoms reported -: Yes All other systems reviewed and negative Physical Exam - Vital signs Vitals: Temp Pulse Resp BP Pulse Ox 98.0 F 54 L 16 224/96 H 99 02/16/19 11:58 02/16/19 11:58 02/16/19 11:58 02/16/19 11:58 02/16/19 11:58 - Notes Notes: GENERAL: Alert, interacts well. No acute distress. HEAD: Normocephalic, atraumatic. EYES: Pupils equal, round, and reactive to light. Extraocular movements intact. ENT: Oral mucosa moist, tongue midline. NECK: Full range of motion. Supple. Trachea midline. LUNGS: Clear to auscultation bilaterally, no wheezes, rales, or rhonchi. No respiratory distress. HEART: Regular rate and rhythm. No murmurs, gallops, or rubs. ABDOMEN: Soft, non-tender. Non-distended. Bowel sounds present in all 4 quadrants. No guarding, rigidity, or rebound. EXTREMITIES: Moves all 4 extremities spontaneously. No edema, radial and dorsalis pedis pulses 2/4 bilaterally. No cyanosis. NEUROLOGICAL: Alert and oriented x3. Normal speech. PSYCH: Normal affect, normal mood. SKIN: Warm, dry, normal turgor. No rashes or lesions noted. Course - Re-evaluation Re-evalutation: 02/16/19 15:33 The patient's initial blood pressure was 224/96. After 10 mg of hydralazine IV the patient's blood pressure came down to 165/90. He continues to be chest pain-free. - Vital Signs Vital signs: Temp Pulse Resp BP Pulse Ox 98.0 F 54 L 12 185/98 H 100 02/16/19 11:58 02/16/19 11:58 02/16/19 16:46 02/16/19 16:46 02/16/19 16:46 - Laboratory Result Diagrams: 02/16/19 12:51 02/16/19 12:51 Laboratory results interpreted by me: 02/16/19 02/16/19 02/16/19 12:51 12:51 12:51 RDW 15.2 H Carbon Dioxide 33 H CK-MB (CK-2) 4.59 H - Diagnostic Test Radiology reviewed: Image reviewed, Reports reviewed - Chest x-ray does not show an acute process - EKG Interpretation by Ia EKG shows normal: Sinus rhythm, [place], Intervals, QRS Complexes, ST-T Waves Rate: Normal - 53 Rhythm: NSR - Consults Dr. Velasco Time consulted: 15:05 Consulted provider: will come to ER Discharge - Discharge Clinical Impression: High blood pressure Qualifiers: Hypertension type: essential hypertension Qualified Code(s): I10 - Essential (primary) hypertension Chest pain Qualifiers: Chest pain type: unspecified Qualified Code(s): R07.9 - Chest pain, unspecified Condition: Stable Disposition: ADMITTED INPATIENT Admitting Provider: Rod (Hospitalist) Unit Admitted: Telemetry Scribe Attestation: 02/16/19 16:04 I personally performed the services described in the documentation, reviewed and edited the documentation which was dictated to the scribe in my presence, and it accurately records my words and actions. I personally performed the services described in the documentation, reviewed and edited the documentation which was dictated to the scribe in my presence, and it accurately records my words and actions.
--- NOTE | 2019-02-16 14:46 | EKG REPORT ---
SEVERITY:- NORMAL ECG - SINUS RHYTHM : Confirmed by: Richmond Griffin 16-Feb-2019 14:45:42
[2019-02-16] MEDS ORDERED: HYDRALAZINE HCL INJ/PF 20 MG/1 ML SDV IV PRN (16:59)
[2019-02-16] MEDS ORDERED: LISINOPRIL 10 MG TABLET PO ONE (17:03)
[2019-02-16] MEDS ORDERED: ONDANSETRON 4 MG TAB.RAPDIS PO PRN (17:04)
[2019-02-16] MEDS ORDERED: ACETAMINOPHEN 325 MG TABLET PO PRN (17:10)
[2019-02-16] MEDS ORDERED: MORPHINE SULFATE 10 MG/ML INJ IV PRN (17:10)
[2019-02-16] MEDS ORDERED: NITROGLYCERIN 0.4 MG/TAB 25 TAB/BOTTLE SL PRN (17:11)
[2019-02-16 19:34] LABS: CREATINE KINASE MB 3.35 ng/mL (<4.55)
[2019-02-16 19:41] LABS: TROPONIN I < 0.012 ng/mL
[2019-02-16] MEDS: FAMOTIDINE 20 MG TABLET PO SCH (21:54)
[2019-02-16] MEDS ORDERED: AMLODIPINE BESYLATE 5 MG TABLET PO SCH (22:00)
[2019-02-16] MEDS ORDERED: MIRTAZAPINE 15 MG TABLET PO SCH (22:00)
[2019-02-17 00:41] LABS: CREATINE KINASE MB 2.56 ng/mL (<4.55)
[2019-02-17 00:45] LABS: TROPONIN I < 0.012 ng/mL
[2019-02-17 07:04] LABS: CREATINE KINASE MB 2.01 ng/mL (<4.55)
[2019-02-17 07:07] LABS: TROPONIN I < 0.012 ng/mL
[2019-02-17] MEDS ORDERED: HYDROCHLOROTHIAZIDE 12.5 MG TABLET PO SCH (08:00)
[2019-02-17] MEDS: FAMOTIDINE 20 MG TABLET PO SCH (09:51)
[2019-02-17] MEDS ORDERED: LISINOPRIL 10 MG TABLET PO SCH (10:00)
[2019-02-17] MEDS ORDERED: ENOXAPARIN SODIUM INJ 40 MG/0.4 ML DISP.SYRIN SUBCUT SCH (10:00)
[2019-02-17] MEDS ORDERED: ASPIRIN 81 MG TABLET, ENT COATED PO SCH (10:00)
[2019-02-17 11:11] VITALS: BP 128/80
--- NOTE | 2019-02-17 23:09 | EKG REPORT ---
SEVERITY:- ABNORMAL ECG - SINUS RHYTHM PROBABLE INFERIOR INFARCT, OLD : Confirmed by: Richmond Griffin 17-Feb-2019 23:09:04
--- NOTE | 2019-02-18 21:38 | PDOC H&P ---
History of Present Illness Admission Date/PCP: 02/16/19 16:28 KUMAR CALLE MD Patient complains of: Chest pain History of Present Illness: NICKY WOOD is a 63 year old male who developed chest tightness while at work. He denies diaphoresis, shortness of breath or radiation of discomfort with this episode. He does report that on occasion he has discomfort that radiates to the left side of his neck. He reports no palpitations. His blood pressure was noted to be elevated. He did have a negative stress test approximately 18 months ago. He was referred to the hospitalist for admission to rule out acute coronary syndrome. Past Medical History Cardiac Medical History: Reports: Hyperlipidema, Hypertension Denies: Congestive Heart Failure, Myocardial Infarction Pulmonary Medical History: Denies: Asthma, Bronchitis, Chronic Obstructive Pulmonary Disease (COPD), Pneumonia, Tuberculosis Neurological Medical History: Denies: Seizures Renal/ Medical History: Denies: End Stage Renal Disease GI Medical History: Reports: Gastroesophageal Reflux Disease Denies: Cirrhosis Musculoskeltal Medical History: Reports: Arthritis - RA Psychiatric Medical History: Reports: Depression Denies: Bipolar Disorder Hematology: Denies: Anemia, Bleeding Tendencies Past Surgical History Past Surgical History: Reports: Orthopedic Surgery - Back, Other - Sinus Social History Information Source: Patient Smoking Status: Former Smoker - as a teenager Frequency of Alcohol Use: None Drugs: None Hx Prescription Drug Abuse: No - Advance Directive Resuscitation Status: Full Code Surrogate healthcare decision maker:: We reviewed healthcare power of assistant attorney general and living will documentation. There is a generic form in the admission packet. I encouraged them to complete this as they have no documentation on record at this point. Family History Family History: CAD, CVA, Malignancy - Laryngeal Parental Family History Reviewed: Yes Children Family History Reviewed: Yes Sibling(s) Family History Reviewed.: Yes Medication/Allergy Home Medications: Aspirin [Adult Low Dose Aspirin EC] 81 mg PO DAILY 02/16/19 Cholecalciferol (Vitamin D3) [Vitamin D3] 10,000 unit PO DAILY 02/16/19 Eletriptan HBr [Relpax] 40 mg PO ASDIR PRN 02/16/19 Fluticasone Propionate [Flonase Nasal [place] 50 Mcg/[place] 16 gm] 1 spray NASL DAILYP PRN 02/16/19 Meclizine HCl [Antivert 12.5 mg Tablet] 12.5 mg PO DAILYP PRN 02/16/19 Mirtazapine 45 mg PO DAILY 02/16/19 Multivitamin [Multiple Vitamins] 1 tab PO DAILY 02/16/19 Nitroglycerin [Nitrostat 0.4 mg (1/150 Gr) Tabs 25/Bottle] 0.4 mg SL Q5MP PRN 02/16/19 Ubidecarenone [Coq-10] 100 mg PO DAILY 02/16/19 Amlodipine Besylate [Norvasc 5 mg Tablet] 5 mg PO QHS 30 Days #30 tablet 02/17/19 Aspirin [Ecotrin 81 mg EC Tablet] 81 mg PO DAILY tabec 02/17/19 Hydrochlorothiazide [Hydrodiuril 12.5 mg Tablet] 12.5 mg PO QAM 30 Days #30 tablet 02/17/19 Lisinopril 20 mg PO DAILY #30 tablet 02/17/19 Mirtazapine [Remeron 15 mg Tablet] 45 mg PO QHS tablet 02/17/19 Nitroglycerin [Nitrostat 0.4 mg (1/150 Gr) Tabs 25/Bottle] 1 tab SL Q5MP PRN bottle 02/17/19 Allergies/Adverse Reactions: No Known Allergies Allergy (Unverified 11/10/17 08:06) Review of Systems Constitutional: PRESENT: as per HPI Eyes: ABSENT: visual disturbances Ears: ABSENT: hearing changes Nose, Mouth, and Throat: ABSENT: headache(s), mouth pain, sore throat Cardiovascular: PRESENT: chest pain. ABSENT: dyspnea on exertion, edema, orthropnea, palpitations Respiratory: ABSENT: cough, hemoptysis, sputum Gastrointestinal: ABSENT: abdominal pain, coffee ground emesis, constipation, diarrhea Genitourinary: ABSENT: difficulty urinating, hematuria Musculoskeletal: PRESENT: muscle weakness - Chronically for over a year. ABSENT: back pain, joint swelling Integumentary: ABSENT: diaphoresis, pruritus, rash Neurological: ABSENT: abnormal movements, abnormal speech, memory loss, syncope, tremor(s) Psychiatric: ABSENT: anxiety, depression, hallucinations Endocrine: ABSENT: cold intolerance, heat intolerance Hematologic/Lymphatic: ABSENT: easy bleeding, easy bruising Physical Exam Vital Signs: Temp Pulse Resp BP Pulse Ox 98.0 F 54 L 12 185/98 H 100 02/16/19 11:58 02/16/19 11:58 02/16/19 16:46 02/16/19 16:46 02/16/19 16:46 Intake & Output 02/15/19 02/16/19 02/17/19 06:59 06:59 06:59 Weight 80.9 kg General appearance: PRESENT: no acute distress, cooperative, well-developed Head exam: PRESENT: atraumatic, normocephalic Eye exam: PRESENT: conjunctiva pale. ABSENT: scleral icterus Ear exam: PRESENT: normal external ear exam Mouth exam: PRESENT: dry mucosa Teeth exam: PRESENT: poor dentation Neck exam: PRESENT: full ROM. ABSENT: carotid bruit, JVD Respiratory exam: PRESENT: rales - At bases. Clear with deep breathing, symm etrical, unlabored. ABSENT: accessory muscle use, rhonchi, tachypnea, wheezes Cardiovascular exam: PRESENT: RRR, +S1, +S2 GI/Abdominal exam: PRESENT: normal bowel sounds, soft. ABSENT: distended, tenderness Rectal exam: PRESENT: deferred Gentrourinary exam: ABSENT: indwelling catheter Extremities exam: ABSENT: joint swelling, pedal edema Musculoskeletal exam: PRESENT: full ROM, normal inspection Neurological exam: PRESENT: alert, altered, oriented to person, oriented to place, oriented to time, oriented to situation, CN II-XII grossly intact. ABSENT: motor sensory deficit Psychiatric exam: PRESENT: appropriate affect, normal mood. ABSENT: agitated, anxious Focused psych exam: ABSENT: delusional, restlessness Results Laboratory Results: 02/16/19 12:51 02/16/19 12:51 02/16/19 02/16/19 12:51 12:51 WBC 6.6 RBC 5.52 Hgb 15.0 Hct 45.0 MCV 81 MCH 27.2 MCHC 33.4 RDW 15.2 H Plt Count 239 Seg Neutrophils % 62.8 Lymphocytes % 26.0 Monocytes % 7.8 Eosinophils % 2.2 Basophils % 1.2 Absolute Neutrophils 4.1 Absolute Lymphocytes 1.7 Absolute Monocytes 0.5 Absolute Eosinophils 0.1 Absolute Basophils 0.1 Sodium 140.5 Potassium 4.2 Chloride 102 Carbon Dioxide 33 H Anion Gap 6 BUN 20 Creatinine 0.78 Est GFR ( Amer) > 60 Est GFR (Non-Af Amer) > 60 Glucose 99 Calcium 9.7 Total Bilirubin 0.4 AST 26 ALT 46 Alkaline Phosphatase 51 Total Protein 7.1 Albumin 4.4 Lipase 105.5 02/16/19 02/16/19 12:51 12:51 Creatine Kinase 89 CK-MB (CK-2) 4.59 H Troponin I < 0.012 Impressions: Chest X-Ray 02/16/19 12:02 IMPRESSION: NO SIGNIFICANT RADIOGRAPHIC FINDING IN THE CHEST. Assessment and Plan - Diagnosis (1) Chest pain Qualifiers: Chest pain type: unspecified Qualified Code(s): R07.9 - Chest pain, unspecified Is this a current diagnosis for this admission?: Yes Plan: Unsure of the etiology. It certainly could be cardiac as he does have a history of hypertension. The patient will be admitted. Serial enzyme studies will be obtained. If positive then will institute the next steps for diagnosis and treatment. (2) Hypertension Qualifiers: Hypertension type: essential hypertension Qualified Code(s): I10 - Essential (primary) hypertension Is this a current diagnosis for this admission?: Yes Plan: Patient's blood pressure was up initially. He was continued on his lisinopril. It is possible that the blood pressure is causing the chest discomfort. We will continue to monitor his blood pressure. (3) Depression with anxiety Is this a current diagnosis for this admission?: Yes Plan: Continue Remeron 45 mg at night. - Time Time Spent with patient: 55 minutes Time Spent with patient: 35 or more minutes Medications reviewed and adjusted accordingly: Yes Anticipated discharge: Home Within: within 48 hours
--- NOTE | 2019-02-18 21:42 | PDOC DISCHARGE SUMMARY ---
General - Admit/Disc Date/PCP Admission Date/Primary Care Provider: 02/16/19 16:28 KUMAR CALLE MD Discharge Date: 02/17/19 - Discharge Diagnosis (1) Chest pain Is this a current diagnosis for this admission?: Yes Summary: The patient had serial negative troponins. I encouraged him to follow-up with Dr. Calle. The chest pain could be related to his blood pressure as well as his history of anxiety. (2) Hypertension Is this a current diagnosis for this admission?: Yes Summary: Blood pressures improved during his admission. Hydrochlorothiazide and amlodipine were added to his regimen. Blood pressures improved significantly. He may in fact be able to decrease some of his medications as it takes several weeks for the effects to mature. (3) Depression with anxiety Is this a current diagnosis for this admission?: Yes - Additional Information Resuscitation Status: Full Code Discharge Diet: Cardiac Discharge Activity: Activity As Tolerated Prescriptions: Amlodipine Besylate [Norvasc 5 mg Tablet] 5 mg PO QHS 30 Days #30 tablet Hydrochlorothiazide [Hydrodiuril 12.5 mg Tablet] 12.5 mg PO QAM 30 Days #30 tablet Lisinopril 20 mg PO DAILY #30 tablet Home Medications: Aspirin [Adult Low Dose Aspirin EC] 81 mg PO DAILY 02/16/19 Cholecalciferol (Vitamin D3) [Vitamin D3] 10,000 unit PO DAILY 02/16/19 Eletriptan HBr [Relpax] 40 mg PO ASDIR PRN 02/16/19 Fluticasone Propionate [Flonase Nasal [place] 50 Mcg/[place] 16 gm] 1 spray NASL DAILYP PRN 02/16/19 Meclizine HCl [Antivert 12.5 mg Tablet] 12.5 mg PO DAILYP PRN 02/16/19 Mirtazapine 45 mg PO DAILY 02/16/19 Multivitamin [Multiple Vitamins] 1 tab PO DAILY 02/16/19 Nitroglycerin [Nitrostat 0.4 mg (1/150 Gr) Tabs 25/Bottle] 0.4 mg SL Q5MP PRN 02/16/19 Ubidecarenone [Coq-10] 100 mg PO DAILY 02/16/19 Amlodipine Besylate [Norvasc 5 mg Tablet] 5 mg PO QHS 30 Days #30 tablet 02/17/19 Aspirin [Ecotrin 81 mg EC Tablet] 81 mg PO DAILY tabec 02/17/19 Hydrochlorothiazide [Hydrodiuril 12.5 mg Tablet] 12.5 mg PO QAM 30 Days #30 tablet 02/17/19 Lisinopril 20 mg PO DAILY #30 tablet 02/17/19 Mirtazapine [Remeron 15 mg Tablet] 45 mg PO QHS tablet 02/17/19 Nitroglycerin [Nitrostat 0.4 mg (1/150 Gr) Tabs 25/Bottle] 1 tab SL Q5MP PRN bottle 02/17/19 History of Present Illness Patient complains of: Chest pain History of Present Illness: NICKY WOOD is a 63 year old male who developed chest tightness while at work. He denies diaphoresis, shortness of breath or radiation of discomfort with this episode. He does report that on occasion he has discomfort that radiates to the left side of his neck. He reports no palpitations. His blood pressure was noted to be elevated. He did have a negative stress test approximately 18 months ago. He was referred to the hospitalist for admission to rule out acute coronary syndrome. Hospital Course Hospital Course: All of the patient's troponins were less than 0.012. I did not order stress kia t. He had a negative stress test last year. I have increased his antihypertensive medications. I will discharge him on lisinopril 20 mg daily as well as hydrochlorothiazide 12.5 mg daily. In addition amlodipine 5 mg at night. Over time Dr. Calle will likely adjust medications based on his blood pressure readings. I did not use a beta-carl as his pulse rate was in the low 60s. Physical Exam Vital Signs: Temp Pulse Resp BP Pulse Ox 98.5 F 64 16 119/60 96 02/17/19 03:33 02/17/19 07:00 02/16/19 23:20 02/17/19 03:33 02/17/19 03:33 Intake & Output 02/16/19 02/17/19 02/18/19 06:59 06:59 06:59 Intake Total 500 Balance 500 Weight 69.9 kg General appearance: PRESENT: no acute distress, cooperative, well-developed Head exam: PRESENT: atraumatic, normocephalic Eye exam: PRESENT: conjunctiva pink. ABSENT: scleral icterus Ear exam: PRESENT: normal external ear exam Respiratory exam: PRESENT: clear to auscultation rosie, symmetrical, unlabored. ABSENT: rales, rhonchi, tachypnea, wheezes Cardiovascular exam: PRESENT: RRR, +S1, +S2 GI/Abdominal exam: PRESENT: normal bowel sounds, soft. ABSENT: distended, tenderness Musculoskeletal exam: PRESENT: ambulatory Neurological exam: PRESENT: alert, awake, oriented to person, oriented to place, oriented to time, oriented to situation, CN II-XII grossly intact Psychiatric exam: PRESENT: appropriate affect. ABSENT: agitated, anxious Focused psych exam: ABSENT: delusional, restlessness Results Laboratory Results: 02/16/19 12:51 02/16/19 12:51 02/16/19 02/16/19 12:51 12:51 WBC 6.6 RBC 5.52 Hgb 15.0 Hct 45.0 MCV 81 MCH 27.2 MCHC 33.4 RDW 15.2 H Plt Count 239 Seg Neutrophils % 62.8 Lymphocytes % 26.0 Monocytes % 7.8 Eosinophils % 2.2 Basophils % 1.2 Absolute Neutrophils 4.1 Absolute Lymphocytes 1.7 Absolute Monocytes 0.5 Absolute Eosinophils 0.1 Absolute Basophils 0.1 Sodium 140.5 Potassium 4.2 Chloride 102 Carbon Dioxide 33 H Anion Gap 6 BUN 20 Creatinine 0.78 Est GFR ( Amer) > 60 Est GFR (Non-Af Amer) > 60 Glucose 99 Calcium 9.7 Total Bilirubin 0.4 AST 26 ALT 46 Alkaline Phosphatase 51 Total Protein 7.1 Albumin 4.4 Lipase 105.5 02/16/19 02/16/19 02/16/19 12:51 12:51 18:39 Creatine Kinase 89 64 CK-MB (CK-2) 4.59 H Troponin I < 0.012 02/16/19 02/16/19 02/16/19 18:39 23:41 23:41 Creatine Kinase 57 CK-MB (CK-2) 3.35 2.56 Troponin I < 0.012 < 0.012 02/17/19 02/17/19 06:10 06:10 Creatine Kinase 51 L CK-MB (CK-2) 2.01 Troponin I < 0.012 Impressions: Chest X-Ray 02/16/19 12:02 IMPRESSION: NO SIGNIFICANT RADIOGRAPHIC FINDING IN THE CHEST. Qualifiers - * PATIENT BEING DISCHARGED WITH ANY OF THE FOLLOWING DIAGNOSIS: No Acute Heart Failure Is this a Heart Failure Patient?: No Plan Time Spent: Greater than 30 Minutes
== END 2019-02-17 11:17 | disposition home or self-care (01) ==
LOC: ER 11:50 → EH 16:28 → INTOOBSV 16:28 → 4S 17:54
PROVIDERS: ADMIT Hospitalist; ATTEND Hospitalist
DX: R07.89 Other chest pain (principal); I10 Essential (primary) hypertension; F41.8 Other specified anxiety disorders; M06.9 Rheumatoid arthritis, unspecified; M62.81 Muscle weakness (generalized); R42 Dizziness and giddiness; R20.2 Paresthesia of skin; Z87.891 Personal history of nicotine dependence; Z79.82 Long term (current) use of aspirin; Z82.49 Family history of ischemic heart disease and other diseases of the circulatory system; Z79.899 Other long term (current) drug therapy; Z82.3 Family history of stroke; Z80.8 Family history of malignant neoplasm of other organs or systems
CPT/HCPCS: 93005 ×2; 99285; 96361; 96374; 36415 ×2; 82553 ×2; 82550 ×2; 83690; 85025; 80053; 84484 ×2; 71046; 93010 ×2; G0378 ×2; J0360; J1650; J3490; J7040

== ENCOUNTER → 2019-08-20 | Outpatient (CLI) | payer OTHER ==
[2019-08-20 08:24] LABS: HEMATOCRIT 44.6 % (37.9-51.0); MEAN CORPUSCULAR HEMOGLOBIN 27.1 pg (27.0-33.4); MEAN CORPUSCULAR HGB CONC 33.7 g/dL (32.0-36.0); MEAN CORPUSCULAR VOLUME 81 fl (80-97); PLATELET COUNT 240 10^3/uL (150-450); RED BLOOD COUNT 5.54 10^6/uL (4.35-5.55); RED CELL DISTRIBUTION WIDTH 14.4 % (11.5-14.0); WHITE BLOOD COUNT 6.3 10^3/uL (4.0-10.5)
[2019-08-20 08:47] LABS: ALBUMIN 4.6 g/dL (3.5-5.0); ALKALINE PHOSPHATASE 57 U/L (38-126); ANION GAP 9 (5-19); ASPARTATE AMINO TRANSFERASE 26 U/L (17-59); BILIRUBIN,TOTAL 0.8 mg/dL (0.2-1.3); BLOOD UREA NITROGEN 23 mg/dL (7-20); CALCIUM 9.5 mg/dL (8.4-10.2); CARBON DIOXIDE 28 mmol/L (22-30); CHLORIDE 101 mmol/L (98-107); CHOLESTEROL 251.35 mg/dL (0-200); GLUCOSE 93 mg/dL (75-110); POTASSIUM 4.5 mmol/L (3.6-5.0); TOTAL PROTEIN 7.3 g/dL (6.3-8.2); TRIGLYCERIDES 114 mg/dL (<150)
[2019-08-20 08:58] LABS: DIRECT LDL 161 mg/dL (<100)
== END ==
LOC: OD 07:42
PROVIDERS: ATTEND Internal Medicine Cardiovascular Disease
DX: I10 Essential (primary) hypertension (principal); E78.5 Hyperlipidemia, unspecified; Z79.899 Other long term (current) drug therapy; R53.83 Other fatigue
CPT/HCPCS: 36415; 80048; 80061; 80076; 83735; 84443; 85027

== ENCOUNTER → 2019-09-11 | Outpatient (CLI) | payer OTHER ==
[2019-09-11 10:47] LABS: HEMATOCRIT 47.1 % (37.9-51.0); HEMOGLOBIN 15.8 g/dL (13.5-17.0); MEAN CORPUSCULAR HEMOGLOBIN 27.3 pg (27.0-33.4); MEAN CORPUSCULAR HGB CONC 33.6 g/dL (32.0-36.0); MEAN CORPUSCULAR VOLUME 81 fl (80-97); PLATELET COUNT 278 10^3/uL (150-450); RED BLOOD COUNT 5.79 10^6/uL (4.35-5.55); RED CELL DISTRIBUTION WIDTH 14.3 % (11.5-14.0); WHITE BLOOD COUNT 8.5 10^3/uL (4.0-10.5)
[2019-09-11 11:21] LABS: ALBUMIN 4.6 g/dL (3.5-5.0); ALKALINE PHOSPHATASE 58 U/L (38-126); ANION GAP 8 (5-19); ASPARTATE AMINO TRANSFERASE 33 U/L (17-59); BILIRUBIN,DIRECT 0.1 mg/dL (0.0-0.4); BILIRUBIN,TOTAL 0.5 mg/dL (0.2-1.3); BLOOD UREA NITROGEN 27 mg/dL (7-20); CARBON DIOXIDE 29 mmol/L (22-30); CHLORIDE 103 mmol/L (98-107); CHOLESTEROL 304.83 mg/dL (0-200); GLUCOSE 99 mg/dL (75-110); POTASSIUM 5.9 mmol/L (3.6-5.0); TOTAL PROTEIN 7.3 g/dL (6.3-8.2); TRIGLYCERIDES 107 mg/dL (<150)
[2019-09-11 11:31] LABS: DIRECT LDL 180 mg/dL (<100)
== END ==
LOC: OD 09:31
PROVIDERS: ATTEND Internal Medicine Cardiovascular Disease
DX: I10 Essential (primary) hypertension (principal); R53.83 Other fatigue; E78.5 Hyperlipidemia, unspecified; Z79.899 Other long term (current) drug therapy
CPT/HCPCS: 36415; 80048; 80061; 80076; 83735; 84443; 85027

== ENCOUNTER → 2019-09-13 | Outpatient (CLI) | payer OTHER ==
[2019-09-13 15:27] LABS: ANION GAP 9 (5-19); BLOOD UREA NITROGEN 26 mg/dL (7-20); CALCIUM 9.8 mg/dL (8.4-10.2); CARBON DIOXIDE 29 mmol/L (22-30); CHLORIDE 103 mmol/L (98-107); GLUCOSE 80 mg/dL (75-110); POTASSIUM 5.9 mmol/L (3.6-5.0)
== END ==
LOC: LAB 14:39
PROVIDERS: ATTEND Internal Medicine Cardiovascular Disease
DX: E78.5 Hyperlipidemia, unspecified (principal)
CPT/HCPCS: 36415; 80048

== ENCOUNTER → 2019-09-15 | Outpatient (CLI) | payer OTHER ==
[2019-09-15 08:39] LABS: ANION GAP 8 (5-19); BLOOD UREA NITROGEN 21 mg/dL (7-20); CALCIUM 9.7 mg/dL (8.4-10.2); CARBON DIOXIDE 28 mmol/L (22-30); CHLORIDE 101 mmol/L (98-107); GLUCOSE 100 mg/dL (75-110); POTASSIUM 5.1 mmol/L (3.6-5.0)
== END ==
LOC: LAB 07:51
PROVIDERS: ATTEND Internal Medicine Cardiovascular Disease
DX: E87.5 Hyperkalemia (principal)
CPT/HCPCS: 36415; 80048

== ENCOUNTER → 2019-10-01 | Outpatient (CLI) | payer OTHER ==
[2019-10-01 17:12] LABS: ANION GAP 8 (5-19); BLOOD UREA NITROGEN 26 mg/dL (7-20); CALCIUM 9.9 mg/dL (8.4-10.2); CARBON DIOXIDE 31 mmol/L (22-30); CHLORIDE 101 mmol/L (98-107); GLUCOSE 89 mg/dL (75-110); POTASSIUM 4.2 mmol/L (3.6-5.0)
== END ==
LOC: LAB 16:21
PROVIDERS: ATTEND Internal Medicine Cardiovascular Disease
DX: I10 Essential (primary) hypertension (principal); E87.5 Hyperkalemia; Z79.899 Other long term (current) drug therapy
CPT/HCPCS: 36415; 80048

== ENCOUNTER → 2020-03-24 | Outpatient (CLI) | payer OTHER ==
[2020-03-24 08:39] LABS: ALBUMIN 4.5 g/dL (3.5-5.0); ALKALINE PHOSPHATASE 57 U/L (38-126); ANION GAP 8 (5-19); ASPARTATE AMINO TRANSFERASE 34 U/L (17-59); BILIRUBIN,TOTAL 0.8 mg/dL (0.2-1.3); BLOOD UREA NITROGEN 24 mg/dL (7-20); CARBON DIOXIDE 27 mmol/L (22-30); CHLORIDE 103 mmol/L (98-107); CHOLESTEROL 178.28 mg/dL (0-200); GLUCOSE 105 mg/dL (75-110); POTASSIUM 4.4 mmol/L (3.6-5.0); TOTAL PROTEIN 7.1 g/dL (6.3-8.2); TRIGLYCERIDES 95 mg/dL (<150)
[2020-03-24 08:49] LABS: DIRECT LDL 96 mg/dL (<100)
== END ==
LOC: OD 07:40
PROVIDERS: ATTEND Physician Assistant
DX: E78.00 Pure hypercholesterolemia, unspecified (principal); I10 Essential (primary) hypertension; Z79.899 Other long term (current) drug therapy
CPT/HCPCS: 36415; 80048; 80061; 80076

== ENCOUNTER → 2020-05-27 | Outpatient (CLI) | payer OTHER ==
[2020-05-27 09:56] LABS: ANION GAP 5 (5-19); BLOOD UREA NITROGEN 25 mg/dL (7-20); CALCIUM 9.7 mg/dL (8.4-10.2); CARBON DIOXIDE 29 mmol/L (22-30); CHLORIDE 102 mmol/L (98-107); GLUCOSE 109 mg/dL (75-110); POTASSIUM 5.7 mmol/L (3.6-5.0)
== END ==
LOC: OD 08:40
PROVIDERS: ATTEND Physician Assistant
DX: I10 Essential (primary) hypertension (principal); E87.5 Hyperkalemia
CPT/HCPCS: 36415; 80048

== ENCOUNTER → 2020-05-29 | Outpatient (CLI) | payer OTHER ==
[2020-05-29 13:01] LABS: ANION GAP 7 (5-19); BLOOD UREA NITROGEN 24 mg/dL (7-20); CALCIUM 9.4 mg/dL (8.4-10.2); CARBON DIOXIDE 27 mmol/L (22-30); CHLORIDE 101 mmol/L (98-107); GLUCOSE 113 mg/dL (75-110); POTASSIUM 4.5 mmol/L (3.6-5.0)
== END ==
LOC: OD 11:44
PROVIDERS: ATTEND Physician Assistant
DX: I10 Essential (primary) hypertension (principal); E87.5 Hyperkalemia
CPT/HCPCS: 36415; 80048

== ENCOUNTER → 2020-07-26 | Outpatient (CLI) | payer OTHER ==
[2020-07-26 10:27] LABS: ALKALINE PHOSPHATASE 72 U/L (38-126); ANION GAP 10 (5-19); ASPARTATE AMINO TRANSFERASE 29 U/L (17-59); BILIRUBIN,DIRECT 0.3 mg/dL (0.0-0.4); BILIRUBIN,TOTAL 0.8 mg/dL (0.2-1.3); BLOOD UREA NITROGEN 24 mg/dL (7-20); CALCIUM 9.7 mg/dL (8.4-10.2); CARBON DIOXIDE 29 mmol/L (22-30); CHLORIDE 103 mmol/L (98-107); CHOLESTEROL 199.71 mg/dL (0-200); GLUCOSE 99 mg/dL (75-110); POTASSIUM 5.4 mmol/L (3.6-5.0); TOTAL PROTEIN 7.8 g/dL (6.3-8.2); TRIGLYCERIDES 184 mg/dL (<150)
[2020-07-26 10:38] LABS: DIRECT LDL 105 mg/dL (<100)
[2020-07-26 10:40] LABS: VLDL CHOLESTEROL 36.8 mg/dL (10-31)
== END ==
LOC: OD 08:32
PROVIDERS: ATTEND Physician Assistant
DX: E78.00 Pure hypercholesterolemia, unspecified (principal); I10 Essential (primary) hypertension; Z79.899 Other long term (current) drug therapy
CPT/HCPCS: 36415; 80048; 80061; 80076

== ENCOUNTER → 2020-08-02 | Outpatient (CLI) | payer OTHER ==
[2020-08-02 17:30] LABS: ANION GAP 10 (5-19); BLOOD UREA NITROGEN 23 mg/dL (7-20); CALCIUM 9.9 mg/dL (8.4-10.2); CARBON DIOXIDE 29 mmol/L (22-30); CHLORIDE 100 mmol/L (98-107); GLUCOSE 98 mg/dL (75-110); POTASSIUM 4.6 mmol/L (3.6-5.0)
== END ==
LOC: OD 16:06
PROVIDERS: ATTEND Physician Assistant
DX: E87.5 Hyperkalemia (principal); I10 Essential (primary) hypertension
CPT/HCPCS: 36415; 80048